=== PATIENT | male | born 1945 | race Caucasian/White ===

== ENCOUNTER 2016-10-10 09:09 | Emergency (ER) | payer MEDICARE, OTHER ==
[~2016-10-10] VITALS: Ht 167.6 cm; Wt 72.0 kg
[~2016-10-10 09:09] MED LIST: AMOX500T PO; ASPI81TA11 OR; LISI-360 PO; METO50TA OR; PLAV75TA OR; SIMV40TA OR
[2016-10-10 09:11] VITALS: BP 130/66; PULSE 58; RESP 20; TEMP 97.8; O2SAT 88
[2016-10-10 09:26] VITALS: BP 137/64; PULSE 58; RESP 20; O2SAT 88
--- NOTE | 2016-10-10 09:59 | PD ---
HPI Chief Complaint: Dizziness Time Seen by Provider: 09:26 Travel History International Travel<30 days: No Contact w/Intl Traveler<30days: No Traveled to known affect area: No History of Present Illness HPI This patient complains of dizziness. However on further questioning he actually has a horizontal binocular diplopia. No vertigo. No headache or head injury or fever. 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 However yesterday he had a worsening and now has the diplopia. [facility] have [facility] but doesn't know his name. He is getting sent to an sales order clerk in [place] on October 20 to have evaluation for cataract surgery. He also does not know that doctor's name. Symptoms severity is moderate. No alleviating factors. PFSH Past Medical History Heart Rhythm Problems: No Cardiac Catheterization: Yes Cardiovascular Problems: Yes ([place]) High Cholesterol: Yes Congestive Heart Failure: No Diabetes: No Diminished Hearing: No Hypertension: Yes Respiratory: Yes ([facility]) Past Surgical History Coronary Artery Bypass Graft: No Coronary Stent: Yes (2009) Social History Alcohol Use: Yes (OCC) Tobacco Use: No (stopped yesterday) Substance Use: No Allergies-Medications (Allergen,Severity, Reaction): Coded Allergies: No Known Allergies (Verified , 10/10/16) Reported Meds & Prescriptions Reported Meds & Active Scripts Active Amoxil (Amoxicillin) 500 Mg Cap 500 Mg PO TID Reported Lisinopril 10 Mg Tab 10 Mg PO Plavix (Clopidogrel Bisulfate) 75 Mg Tab 75 Mg OR Metoprolol Tartrate 50 Mg Tab 25 Mg OR BID Simvastatin 40 Mg Tab 40 Mg OR Aspirin EC (Aspirin) 81 Mg Tab 81 Mg OR Review of Systems General / Constitutional: No: Fever Eyes: Positive: Diploplia, No: Visual changes HENT: No: Headaches Cardiovascular: No: Chest Pain or Discomfort Respiratory: No: Shortness of Breath Gastrointestinal: No: Abdominal Pain Genitourinary: No: Dysuria Musculoskeletal: No: Pain Skin: No Rash Neurologic: Positive: Dizziness, No: Weakness Psychiatric: No: Depression Endocrine: No: Polydipsia Hematologic/Lymphatic: No: Easy Bruising Physical Exam Narrative GENERAL: Well-nourished, well-developed patient in no apparent distress. SKIN: Focused skin assessment reveals no rash and nodules. Skin is Warm and dry. HEAD: Atraumatic. Normocephalic. EYES: Pupils equal and round. No scleral icterus. No injection or drainage. ENT: No nasal bleeding or discharge. Mucous membranes pink and moist. Patient has a prominent amblyopia. His right eye wanders. On extraocular muscle testing he appears to have a left sided nerve palsy. He cannot look to the left side fully. Pupil function is normal. NECK: Trachea midline. No JVD. CARDIOVASCULAR: Regular rate and rhythm. No murmur appreciated. RESPIRATORY: No accessory muscle use. Clear to auscultation. Breath sounds equal bilaterally. GASTROINTESTINAL: Abdomen soft, non-tender, nondistended. Hepatic and splenic margins not palpable. MUSCULOSKELETAL: No obvious deformities. No clubbing. No cyanosis. No edema. NEUROLOGICAL: Awake and alert. Motor grossly within normal limits. Normal speech. PSYCHIATRIC: Appropriate mood and affect; insight and judgment normal. Data Data Last Documented VS Vital Signs Date Time Temp Pulse Resp B/P Pulse Ox O2 Delivery O2 Flow Rate FiO2 10/10/16 11:12 59 16 124/65 98 Room Air 10/10/16 09:11 97.8 MDM Medical Decision Making Medical Screen Exam Complete: Yes Emergency Medical Condition: Yes Medical Record Reviewed: Yes Differential Diagnosis nerve palsy, diplopia, cataract Narrative Course I have reviewed the patient's electronic medical record. Case is reviewed in detail with sales order clerk Dr. Alexander. She doesn't recommend anything emergent to be done. She recommends ophthalmology follow-up Had a lengthy discussion with patient and at bedside. They're going to need to [facility] and call them and let them know about this new development. They should get a recheck. If they develop any stroke signs or symptoms that would be a whole different situation and should return promptly. 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
[2016-10-10 11:12] VITALS: BP 124/65; PULSE 59; RESP 16; O2SAT 98
== END 2016-10-10 12:33 | disposition home or self-care (01) ==
LOC: NEPC 09:09
DX: H53.2 Diplopia (principal); H49.22 Sixth [abducent] nerve palsy, left eye; I10 Essential (primary) hypertension; E78.00 Pure hypercholesterolemia, unspecified; I25.2 Old myocardial infarction; Z79.899 Other long term (current) drug therapy
CPT/HCPCS: 99281

== ENCOUNTER 2017-08-28 08:18 | Observation (INO) | payer OTHER, MEDICARE ==
[~2017-08-28] VITALS: Ht 167.6 cm; Wt 67.0 kg
[2017-08-28] VITALS (9 sets, daily range): BP systolic 131–157; BP diastolic 61–84; PULSE 61–79; RESP 16–18; TEMP 97.6–98.2; O2SAT 86–99
[2017-08-28] MEDS ORDERED: ASPI81CH6 CHEW (08:39)
[2017-08-28] MEDS ORDERED: SIMV40TA PO (08:39)
[2017-08-28] MEDS ORDERED: METF500T PO (08:39)
[2017-08-28] MEDS ORDERED: SODIUM CHLORIDE 0.9% FLUSH 10 ML FLUSH IVF PRN (10:45)
[2017-08-28 10:47] LABS: AUTOMATED NEUTROPHIL # 9.2 TH/MM3 (1.8-7.7); BASOPHIL # 0.1 TH/MM3 (0-0.2); BASOPHIL % 0.7 % (0.0-2.0); EOSINOPHIL # 0.2 TH/MM3 (0-0.4); EOSINOPHIL % 1.2 % (0.0-4.0); HEMATOCRIT 44.1 % (39.0-51.0); HEMOGLOBIN 14.7 GM/DL (13.0-17.0); LYMPH % 15.3 % (9.0-44.0); LYMPHOCYTE # 1.9 TH/MM3 (1.0-4.8); MEAN CELL VOLUME 92.5 FL (80.0-100.0); MEAN CORPUSCULAR HEMOGLOBIN 30.8 PG (27.0-34.0); MEAN CORPUSCULAR HGB CONC 33.3 % (32.0-36.0); MEAN PLATELET VOLUME 9.1 FL (7.0-11.0); MONO % 9.1 % (0.0-8.0); MONOCYTE # 1.1 TH/MM3 (0-0.9); NEUT % 73.7 % (16.0-70.0); PLATELET COUNT 230 TH/MM3 (150-450); RED BLOOD COUNT 4.77 MIL/MM3 (4.50-5.90); RED CELL DISTRIBUTION WIDTH 13.3 % (11.6-17.2); WHITE BLOOD COUNT 12.4 TH/MM3 (4.0-11.0)
[2017-08-28 10:56] LABS: PROTHROMBIN TIME - PATIENT 10.2 SEC (9.8-11.6)
[2017-08-28 11:02] LABS: ALBUMIN 3.4 GM/DL (3.4-5.0); AST (GOT) 18 U/L (15-37); BLOOD UREA NITROGEN 5 MG/DL (7-18); CALCIUM 8.8 MG/DL (8.5-10.1); CHLORIDE 105 MEQ/L (98-107); CREATININE 1.03 MG/DL (0.60-1.30); GLOMERULAR FILTRATION RATE 72 ML/MIN (>89); GLUCOSE,RANDOM 138 MG/DL (74-106); SODIUM (NA) 144 MEQ/L (136-145)
[2017-08-28 11:07] LABS: ALKALINE PHOSPHATASE 81 U/L (45-117); ALT (GPT) 14 U/L (12-78); TOTAL BILIRUBIN ADULT 0.5 MG/DL (0.2-1.0); TOTAL PROTEIN 7.9 GM/DL (6.4-8.2); TROPONIN I LESS THAN 0.02 NG/ML (0.02-0.05)
--- NOTE | 2017-08-28 11:20 | RADRPT ---
EXAM DATE/TIME: 08/28/2017 10:49 [facility] COMPARISON: CHEST PA & LAT, January 27, 2011, 22:59 INDICATIONS : Patient states syncope. MEDICAL HISTORY : Hypercholesterolemia. SURGICAL HISTORY : Coronary artery stent. ENCOUNTER: Initial ACUITY: 1 day PAIN SCORE: 0/10 LOCATION: Bilateral chest FINDINGS: Diffuse lower lobe predominant interstitial prominence/fibrosis which has progressed since remote chloe or exam. Cardiomediastinal contours are within normal limits. Bony thorax is intact. CONCLUSION: 1. Diffuse lower lobe predominant interstitial changes/fibrosis, progressed from remote prior exam. Orion Ann MD on August 28, 2017 at 11:13 Board Certified Radiologist. This report was verified electronically.
--- NOTE | 2017-08-28 11:22 | RADRPT ---
EXAM DATE/TIME: 08/28/2017 10:57 [facility] COMPARISON: No previous studies available for comparison. INDICATIONS : Patient complains of dizziness. RADIATION DOSE: 56.35 CTDIvol (mGy) MEDICAL HISTORY : Cardiovascular disease. Hypertension. Chronic obstructive pulmonary disease.diabetic SURGICAL HISTORY : None. ENCOUNTER: Initial ACUITY: 1 day PAIN SCALE: 0/10 LOCATION: cranial TECHNIQUE: Multiple contiguous axial images were obtained of the head. Using automated exposure control and adj ustment of the mA and/or kV according to patient size, radiation dose was kept as low as reasonably a chievable to obtain optimal diagnostic quality images. DICOM format image data is available electro nically for review and comparison. FINDINGS: CEREBRUM: Mild diffuse triple volume loss. The ventricles are minimally prominent in size compared to degree of atrophy. No evidence of midline shift, mass lesion, hemorrhage or acute infarction. No extra-axial fluid collections are seen. POSTERIOR FOSSA: The cerebellum and brainstem are intact. The 4th ventricle is midline. The cerebellopontine angle i s unremarkable. EXTRACRANIAL: The visualized portion of the orbits is intact. SKULL: The calvaria is intact. No evidence of skull fracture. CONCLUSION: 1. Minimal diffuse ventriculomegaly out of proportion to degree of atrophy. Consider clinical correla tion for normal pressure hydrocephalus. 2. Otherwise, no acute intracranial abnormality. Orion Ann MD on August 28, 2017 at 11:18 Board Certified Radiologist. This report was verified electronically.
--- NOTE | 2017-08-28 12:34 | PD ---
HPI Chief Complaint: Dizziness Time Seen by Provider: 08:53 Travel History International Travel<30 days: No Contact w/Intl Traveler<30days: No Traveled to known affect area: No History of Present Illness HPI THIS NOTE WAS ENTERED IN ERROR. PLEASE SEE COMPLETED NOTE. PFSH Past Medical History Heart Rhythm Problems: No Cardiac Catheterization: Yes Cardiovascular Problems: Yes ([place]) High Cholesterol: Yes Congestive Heart Failure: No COPD: Yes Diabetes: Yes Patient Takes Glucophage: Yes Diminished Hearing: No Hypertension: Yes Respiratory: Yes ([facility]) Tetanus Vaccination: > 5 Years Influenza Vaccination: No Past Surgical History Coronary Artery Bypass Graft: No Coronary Stent: Yes (2009) Eye Surgery: Yes (L EYE CATARACT) Social History Alcohol Use: Yes (OCC) Tobacco Use: Yes (1 PPD) Substance Use: No Allergies-Medications (Allergen,Severity, Reaction): Coded Allergies: No Known Allergies (Verified Allergy, Unknown, 08/28/17) Reported Meds & Prescriptions Reported Meds & Active Scripts Active Reported Aspirin Low Dose (Aspirin) 81 Mg Chew 81 Mg CHEW DAILY Simvastatin 40 Mg Tab 40 Mg PO HS Metformin (Metformin HCl) 500 Mg Tab 500 Mg PO DAILY With a meal Review of Systems Except as stated in HPI: all other systems reviewed are Neg Data Data Last Documented VS Vital Signs Date Time Temp Pulse Resp B/P (MAP) Pulse Ox O2 Delivery O2 Flow Rate FiO2 08/28/17 12:52 61 18 147/63 (91) 97 Room Air 08/28/17 08:20 97.6 Orders Orders Electrocardiogram (08/28/17 ) Prothrombin Time / Inr (Pt) (08/28/17 10:31) Act Partial Throm Time (Ptt) (08/28/17 10:31) Complete Blood Count With Diff (08/28/17 10:31) Comprehensive Metabolic Panel (08/28/17 10:31) Creatine Kinase (Cpk) (08/28/17 10:31) Troponin I (08/28/17 10:31) Urinalysis - C+S If Indicated (08/28/17 10:31) Ct Brain W/O Iv Contrast(Rout) (08/28/17 10:31) Chest, Single Ap (08/28/17 10:31) Ecg Monitoring (08/28/17 10:31) Iv Access Insert/Monitor (08/28/17 10:31) Oximetry (08/28/17 10:31) Sodium Chloride 0.9% Flush (Ns Flush) (08/28/17 10:45) Ckmb (Isoenzyme) Profile (08/28/17 10:31) Place In Observation (08/28/17 ) Vital Signs (Adult) Q4H (08/28/17 13:06) Activity Oob With Assistance (08/28/17 13:06) Hospitalist Nocturnist Physician / Telemetry .CONTINUOUS (08/28/17 13:06) Diet Heart Healthy (08/28/17 Lunch) Sodium Chlor 0.9% 1000 Ml Inj (Ns 1000 M (08/28/17 14:00) Sodium Chloride 0.9% Flush (Ns Flush) (08/28/17 13:15) Sodium Chloride 0.9% Flush (Ns Flush) (08/28/17 21:00) Acetaminophen (Tylenol) (08/28/17 13:15) Ondansetron Inj (Zofran Inj) (08/28/17 13:15) Basic Metabolic Panel (Bmp) (08/29/17 06:00) Complete Blood Count With Diff (08/29/17 06:00) Resp Oxygen Aiden C Titrat 1-4 L (08/28/17 ) Pt Request For Service (08/28/17 13:06) Scd Bilateral/Knee High MARISA.BID (08/28/17 13:06) Naloxone Inj (Narcan Inj) (08/28/17 13:15) Magnesium Hydroxide Liq (Milk Of Magnesi (08/28/17 13:15) Sennosides (Senokot) (08/28/17 13:15) Bisacodyl Supp (Dulcolax Supp) (08/28/17 13:15) Lactulose Liq (Lactulose Liq) (08/28/17 13:15) Admit Order (Ed Use Only) (08/28/17 13:09) Labs Laboratory Tests Test 08/28/17 08:45 08/28/17 13:05 White Blood Count 12.4 TH/MM3 Red Blood Count 4.77 MIL/MM3 Hemoglobin 14.7 GM/DL Hematocrit 44.1 % Mean Corpuscular Volume 92.5 FL Mean Corpuscular Hemoglobin 30.8 PG Mean Corpuscular Hemoglobin Concent 33.3 % Red Cell Distribution Width 13.3 % Platelet Count 230 TH/MM3 Mean Platelet Volume 9.1 FL Neutrophils (%) (Auto) 73.7 % Lymphocytes (%) (Auto) 15.3 % Monocytes (%) (Auto) 9.1 % Eosinophils (%) (Auto) 1.2 % Basophils (%) (Auto) 0.7 % Neutrophils # (Auto) 9.2 TH/MM3 Lymphocytes # (Auto) 1.9 TH/MM3 Monocytes # (Auto) 1.1 TH/MM3 Eosinophils # (Auto) 0.2 TH/MM3 Basophils # (Auto) 0.1 TH/MM3 CBC Comment DIFF FINAL Differential Comment Prothrombin Time 10.2 SEC Prothromb Time International Ratio 1.0 RATIO Activated Partial Thromboplast Time 25.9 SEC Blood Urea Nitrogen 5 MG/DL Creatinine 1.03 MG/DL Random Glucose 138 MG/DL Total Protein 7.9 GM/DL Albumin 3.4 GM/DL Calcium Level 8.8 MG/DL Alkaline Phosphatase 81 U/L Aspartate Amino Transf (AST/SGOT) 18 U/L Alanine Aminotransferase (ALT/SGPT) 14 U/L Total Bilirubin 0.5 MG/DL Sodium Level 144 MEQ/L Potassium Level 4.1 MEQ/L Chloride Level 105 MEQ/L Carbon Dioxide Level 31.0 MEQ/L Anion Gap 8 MEQ/L Estimat Glomerular Filtration Rate 72 ML/MIN Total Creatine Kinase 69 U/L Troponin I LESS THAN 0.02 NG/ML Urine Color YELLOW Urine Turbidity CLEAR Urine pH 5.0 Urine Specific [place] 1.021 Urine Protein TRACE mg/dL Urine Glucose (UA) NEG mg/dL Urine Ketones NEG mg/dL Urine Occult Blood NEG Urine Nitrite NEG Urine Bilirubin NEG Urine Urobilinogen 2.0 MG/DL Urine Leukocyte Esterase NEG Urine RBC LESS THAN 1 /hpf Urine WBC 1 /hpf Urine Squamous Epithelial Cells <1 /hpf Urine Hyaline Casts 17 /lpf Urine Mucus MOD /lpf Microscopic Urinalysis Comment CATH-CULT NOT IND MDM Medical Decision Making Medical Screen Exam Complete: Yes Emergency Medical Condition: Yes Admitting Information Admitting Physician Requests: Observation Emily Ruff MD August 28, 2017 12:34
--- NOTE | 2017-08-28 12:52 | PD ---
HPI Chief Complaint: Dizziness Time Seen by Provider: 08:53 Travel History International Travel<30 days: No Contact w/Intl Traveler<30days: No Traveled to known affect area: No History of Present Illness HPI Patient presents to the emergency department complaining of dizziness. 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 New onset. No acute vision change, fever, chills, nausea, vomiting, chest pain, lower extremity edema, unsure of headache. He reports chronic dyspnea secondary to COPD and he is on home O2. PFSH Past Medical History Heart Rhythm Problems: No Cardiac Catheterization: Yes Cardiovascular Problems: Yes ([place]) High Cholesterol: Yes Congestive Heart Failure: No COPD: Yes Diabetes: Yes Patient Takes Glucophage: Yes Diminished Hearing: No Hypertension: Yes Respiratory: Yes ([facility]) Tetanus Vaccination: > 5 Years Influenza Vaccination: No Past Surgical History Coronary Artery Bypass Graft: No Coronary Stent: Yes (2009) Eye Surgery: Yes (L EYE CATARACT) Social History Alcohol Use: Yes (OCC) Tobacco Use: Yes (1 PPD) Substance Use: No Allergies-Medications (Allergen,Severity, Reaction): Coded Allergies: No Known Allergies (Verified Adverse Reaction, Unknown, 08/28/17) Reported Meds & Prescriptions Reported Meds & Active Scripts Active Reported Aspirin Low Dose (Aspirin) 81 Mg Chew 81 Mg CHEW DAILY Simvastatin 40 Mg Tab 40 Mg PO HS Metformin (Metformin HCl) 500 Mg Tab 500 Mg PO DAILY With a meal Review of Systems Except as stated in HPI: all other systems reviewed are Neg Physical Exam Narrative GENERAL: No acute distress. SKIN: Focused skin assessment warm/dry. HEAD: Atraumatic. Normocephalic. EYES: Pupils equal and round. Extraocular muscles intact bilaterally. No scleral icterus. No injection or drainage. ENT: No nasal bleeding or discharge. Mucous membranes pink and moist. NECK: Trachea midline. No JVD. CARDIOVASCULAR: Regular rate and rhythm. No murmur appreciated. RESPIRATORY: No accessory muscle use. Clear to auscultation. Breath sounds equal bilaterally. GASTROINTESTINAL: Abdomen soft, non-tender, nondistended. Hepatic and splenic margins not palpable. MUSCULOSKELETAL: No obvious deformities. No clubbing. No cyanosis. No edema. NEUROLOGICAL: Awake and alert. No obvious cranial nerve deficits. Motor grossly within normal limits. Normal speech. PSYCHIATRIC: Appropriate mood and affect; insight and judgment normal. Data Data Last Documented VS Vital Signs Date Time Temp Pulse Resp B/P (MAP) Pulse Ox O2 Delivery O2 Flow Rate FiO2 08/28/17 12:52 61 18 147/63 (91) 97 Room Air 08/28/17 08:20 97.6 Orders Orders Electrocardiogram (08/28/17 ) Prothrombin Time / Inr (Pt) (08/28/17 10:31) Act Partial Throm Time (Ptt) (08/28/17 10:31) Complete Blood Count With Diff (08/28/17 10:31) Comprehensive Metabolic Panel (08/28/17 10:31) Creatine Kinase (Cpk) (08/28/17 10:31) Troponin I (08/28/17 10:31) Urinalysis - C+S If Indicated (08/28/17 10:31) Ct Brain W/O Iv Contrast(Rout) (08/28/17 10:31) Chest, Single Ap (08/28/17 10:31) Ecg Monitoring (08/28/17 10:31) Iv Access Insert/Monitor (08/28/17 10:31) Oximetry (08/28/17 10:31) Sodium Chloride 0.9% Flush (Ns Flush) (08/28/17 10:45) Ckmb (Isoenzyme) Profile (08/28/17 10:31) Labs Laboratory Tests Test 08/28/17 08:45 White Blood Count 12.4 TH/MM3 Red Blood Count 4.77 MIL/MM3 Hemoglobin 14.7 GM/DL Hematocrit 44.1 % Mean Corpuscular Volume 92.5 FL Mean Corpuscular Hemoglobin 30.8 PG Mean Corpuscular Hemoglobin Concent 33.3 % Red Cell Distribution Width 13.3 % Platelet Count 230 TH/MM3 Mean Platelet Volume 9.1 FL Neutrophils (%) (Auto) 73.7 % Lymphocytes (%) (Auto) 15.3 % Monocytes (%) (Auto) 9.1 % Eosinophils (%) (Auto) 1.2 % Basophils (%) (Auto) 0.7 % Neutrophils # (Auto) 9.2 TH/MM3 Lymphocytes # (Auto) 1.9 TH/MM3 Monocytes # (Auto) 1.1 TH/MM3 Eosinophils # (Auto) 0.2 TH/MM3 Basophils # (Auto) 0.1 TH/MM3 CBC Comment DIFF FINAL Differential Comment Prothrombin Time 10.2 SEC Prothromb Time International Ratio 1.0 RATIO Activated Partial Thromboplast Time 25.9 SEC Blood Urea Nitrogen 5 MG/DL Creatinine 1.03 MG/DL Random Glucose 138 MG/DL Total Protein 7.9 GM/DL Albumin 3.4 GM/DL Calcium Level 8.8 MG/DL Alkaline Phosphatase 81 U/L Aspartate Amino Transf (AST/SGOT) 18 U/L Alanine Aminotransferase (ALT/SGPT) 14 U/L Total Bilirubin 0.5 MG/DL Sodium Level 144 MEQ/L Potassium Level 4.1 MEQ/L Chloride Level 105 MEQ/L Carbon Dioxide Level 31.0 MEQ/L Anion Gap 8 MEQ/L Estimat Glomerular Filtration Rate 72 ML/MIN Total Creatine Kinase 69 U/L Troponin I LESS THAN 0.02 NG/ML MDM Medical Decision Making Medical Screen Exam Complete: Yes Emergency Medical Condition: Yes Interpretation(s) ECG: Sinus rhythm, 67, labs: Increased WBC count; urinalysis pending at the time of admission, admit team to follow Last Impressions Head CT 08/28/17 1031 Signed Impressions: Service Date/Time: Monday, August 28, 2017 10:57 - CONCLUSION: 1. Minimal diffuse ventriculomegaly out of proportion to degree of atrophy. Consider clinical correlation for normal pressure hydrocephalus. 2. Otherwise, no acute intracranial abnormality. Orion Ann MD Chest X-Ray 08/28/17 1031 Signed Impressions: Service Date/Time: Monday, August 28, 2017 10:49 - CONCLUSION: 1. Diffuse lower lobe predominant interstitial changes/fibrosis, progressed from remote prior exam. Orion Ann MD Differential Diagnosis CVA, TIA, intracranial abnormality Narrative Course Patient presents to the emergency department complaining of dizziness and unsteady gait. He is afebrile, slightly hypertensive at 157/69, remaining vital signs stable. Will check head CT, chest x-ray, EKG, enzymes, CBC, chemistry, coags Diagnosis Primary Impression: Dizziness Additional Impression: Normal pressure hydrocephalus Admitting Information Admitting Physician Requests: Observation Condition: Stable Emily Ruff MD August 28, 2017 12:52
[2017-08-28] MEDS ORDERED: ONDANSETRON HCL 4 MG/2 ML VIAL IVP PRN (13:15)
[2017-08-28] MEDS ORDERED: SODIUM CHLORIDE 0.9% FLUSH 10 ML FLUSH IV FLUSH PRN (13:15)
[2017-08-28] MEDS ORDERED: SENNOSIDES 8.6 MG TAB PO PRN (13:15)
[2017-08-28] MEDS ORDERED: NALOXONE HCL 0.4 MG/ML AMP IV PUSH PRN (13:15)
[2017-08-28] MEDS ORDERED: LACTULOSE SYRUP 20 GM/30 ML CUP PO PRN (13:15)
[2017-08-28] MEDS ORDERED: MAGNESIUM HYDROXIDE SUSP 30 ML CUP PO PRN (13:15)
[2017-08-28] MEDS ORDERED: BISACODYL 10 MG SUPP RECTAL PRN (13:15)
[2017-08-28] MEDS ORDERED: ACETAMINOPHEN 325 MG TAB PO PRN (13:15)
[2017-08-28 13:27] LABS: BILIRUBIN, URINE NEG (NEG); BLOOD, URINE NEG (NEG); GLUCOSE,URINE NEG (NEG); HYALINE CAST, URINE 17 /lpf (RARE); KETONE, URINE NEG (NEG); MUCUS URINE MOD /lpf (OCC); NITRITE,URINE NEG (NEG); SQUAMOUS EPITHELIAL CELL URINE <1 /hpf (0-5); URINE COLOR YELLOW (YELLW/STRAW); URINE LEUKOCYTE ESTERASE NEG (NEG)
--- NOTE | 2017-08-28 15:34 | HHI.HP ---
[facility] Admission Diagnosis Dizziness, normal pressure hydrocephalus Diagnoses: Chief Complaint: Dizziness. Travel History International Travel<30 Days: No Contact w/Intl Traveler <30 Da: No Traveled to Known Affected Are: No History of Present Illness Mr. Jurado is a pleasant 71 year old male with a history of CAD, Hyperlipidemia , COPD O2 dependent who presents to the ED on 08/28/2017 due to dizziness and near syncope this morning. He was called for jury duty and he got out of the home around 7:30AM and as he was walking, he was holding a rail and he felt dizzy. He was able to lower himself on the ground and sat there. After sometime , he felt better. He did not eat breakfast. He normally does not get dizzy or lightheaded. No chest pain, shortness of breath, nausea/vomiting. No diaphoresis. He denies any cough, abdominal pain, changes in bowel or bladder habits. His roommate subsequently brought him to the hospital for further evaluation. Review of Systems Except as stated in HPI: all other systems reviewed are Neg Past Family Social History Past Medical History CAD, Hyperlipidemia, Diabetes, COPD, Hypertension. Past Surgical History Eye cataract surgery. Coronary stent placement. Reported Medications Aspirin Low Dose (Aspirin) 81 Mg Chew 81 Mg CHEW DAILY Simvastatin 40 Mg Tab 40 Mg PO HS Metformin (Metformin HCl) 500 Mg Tab 500 Mg PO DAILY With a meal Allergies: Coded Allergies: No Known Allergies (Verified Allergy, Unknown, 08/28/17) Family History Testicular cancer in brother. Social History Alcohol Use: Yes (OCC) Tobacco Use: Yes (1 PPD) Substance Use: No Physical Exam Vital Signs Vital Signs Date Time Temp Pulse Resp B/P (MAP) Pulse Ox O2 Delivery O2 Flow Rate FiO2 08/28/17 14:29 98.0 63 16 136/84 (101) 98 08/28/17 14:15 08/28/17 13:16 97 Nasal Cannula 2.00 08/28/17 12:52 61 18 147/63 (91) 97 Room Air 08/28/17 08:37 67 18 157/69 (98) 99 Room Air 08/28/17 08:31 71 18 98 Room Air 08/28/17 08:20 97.6 79 16 145/65 (91) 86 Physical Exam GENERAL: This is a well-nourished, well-developed patient, in no apparent distress. SKIN: No rashes, ecchymoses or lesions. Warm and dry. HEAD: Atraumatic. Normocephalic. No temporal or scalp tenderness. EYES: Pupils equal round and reactive. No injection or drainage. ENT: Nose without bleeding, purulent drainage or septal hematoma. Airway patent. NECK: Trachea midline. No lymphadenopathy. Supple, nontender, no meningeal signs. CARDIOVASCULAR: Regular rate and rhythm without murmurs, gallops, or rubs. No JVD. RESPIRATORY: Poor air entry, bibasilar crackles especially on the left. No wheezes, rales, or rhonchi. GASTROINTESTINAL: Abdomen soft, non-tender, nondistended. No guarding. MUSCULOSKELETAL: Extremities without clubbing, cyanosis, or edema. NEUROLOGICAL: Awake and alert. Cranial nerves II through XII intact. No focal neurological deficits. Normal speech. Laboratory Laboratory Tests Test 08/28/17 08:45 08/28/17 13:05 White Blood Count 12.4 Red Blood Count 4.77 Hemoglobin 14.7 Hematocrit 44.1 Mean Corpuscular Volume 92.5 Mean Corpuscular Hemoglobin 30.8 Mean Corpuscular Hemoglobin Concent 33.3 Red Cell Distribution Width 13.3 Platelet Count 230 Mean Platelet Volume 9.1 Neutrophils (%) (Auto) 73.7 Lymphocytes (%) (Auto) 15.3 Monocytes (%) (Auto) 9.1 Eosinophils (%) (Auto) 1.2 Basophils (%) (Auto) 0.7 Neutrophils # (Auto) 9.2 Lymphocytes # (Auto) 1.9 Monocytes # (Auto) 1.1 Eosinophils # (Auto) 0.2 Basophils # (Auto) 0.1 CBC Comment DIFF FINAL Differential Comment Prothrombin Time 10.2 Prothromb Time International Ratio 1.0 Activated Partial Thromboplast Time 25.9 Blood Urea Nitrogen 5 Creatinine 1.03 Random Glucose 138 Total Protein 7.9 Albumin 3.4 Calcium Level 8.8 Alkaline Phosphatase 81 Aspartate Amino Transf (AST/SGOT) 18 Alanine Aminotransferase (ALT/SGPT) 14 Total Bilirubin 0.5 Sodium Level 144 Potassium Level 4.1 Chloride Level 105 Carbon Dioxide Level 31.0 Anion Gap 8 Estimat Glomerular Filtration Rate 72 Total Creatine Kinase 69 Troponin I LESS THAN 0.02 Urine Color YELLOW Urine Turbidity CLEAR Urine pH 5.0 Urine Specific Diagonal 1.021 Urine Protein TRACE Urine Glucose (UA) NEG Urine Ketones NEG Urine Occult Blood NEG Urine Nitrite NEG Urine Bilirubin NEG Urine Urobilinogen 2.0 Urine Leukocyte Esterase NEG Urine RBC LESS THAN 1 Urine WBC 1 Urine Squamous Epithelial Cells <1 Urine Hyaline Casts 17 Urine Mucus MOD Microscopic Urinalysis Comment CATH-CULT NOT IND Result Diagram: 08/28/17 0845 08/28/17 0845 Imaging Last Impressions Head CT 08/28/17 1031 Signed Impressions: Service Date/Time: Monday, August 28, 2017 10:57 - CONCLUSION: 1. Minimal diffuse ventriculomegaly out of proportion to degree of atrophy. Consider clinical correlation for normal pressure hydrocephalus. 2. Otherwise, no acute intracranial abnormality. Orion Ann MD Chest X-Ray 08/28/17 1031 Signed Impressions: Service Date/Time: Monday, August 28, 2017 10:49 - CONCLUSION: 1. Diffuse lower lobe predominant interstitial changes/fibrosis, progressed from remote prior exam. MD Johnny Peacock VTE Risk Assessment Hollisrini VTE Risk Assessment: Mod/High Risk (score >= 2) Caprini Risk Assessment Model Point Value = 1 Point Value = 2 Point Value = 3 Point Value = 5 Age 41-60 Minor surgery BMI > 25 kg/m2 Swollen legs Varicose veins or History of unexplained or recurrent spontaneous Oral contraceptives or hormone replacement Sepsis (< 1 month) Serious lung disease, including pneumonia (< 1 month) Abnormal pulmonary function Acute myocardial infarction Congestive heart failure (< 1 month) History of inflammatory bowel disease Medical patient at bed rest Age 61-74 Arthroscopic surgery Major open surgery (> 45 min) Laparoscopic surgery (> 45 min) Malignancy Confined to bed (> 72 hours) Immobilizing plaster cast Central venous access Age >= 75 History of VTE Family history of VTE Factor V Leiden Prothrombin [id number] Lupus anticoagulant Anticardiolipin antibodies Elevated serum homocysteine Heparin-induced thrombocytopenia Other congenital or acquired thrombophilia Stroke (< 1 month) Elective arthroplasty Hip, pelvis, or leg fracture Acute spinal cord injury (< 1 month) Prophylaxis Regimen Total Risk Factor Score Risk Level Prophylaxis Regimen 0-1 Low Early ambulation 2 Moderate Order ONE of the following: *Sequential Compression Device (SCD) *Heparin 5000 units SQ BID 3-4 Higher Order ONE of the following medications: *Heparin 5000 units SQ TID *Enoxaparin/Lovenox 40 mg SQ daily (WT < 150 kg, CrCl > 30 mL/min) *Enoxaparin/Lovenox 30 mg SQ daily (WT < 150 kg, CrCl > 10-29 mL/min) *Enoxaparin/Lovenox 30 mg SQ BID (WT < 150 kg, CrCl > 30 mL/min) AND/OR *Sequential Compression Device (SCD) 5 or more Highest Order ONE of the following medications: *Heparin 5000 units SQ TID (Preferred with Epidurals) *Enoxaparin/Lovenox 40 mg SQ daily (WT < 150 kg, CrCl > 30 mL/min) *Enoxaparin/Lovenox 30 mg SQ daily (WT < 150 kg, CrCl > 10-29 mL/min) *Enoxaparin/Lovenox 30 mg SQ BID (WT < 150 kg, CrCl > 30 mL/min) AND *Sequential Compression Device (SCD) Assessment and Plan Problem List: (1) Dizziness ICD Code: R42 - Dizziness and giddiness Status: Acute (2) CAD (coronary artery disease) ICD Code: I25.10 - Atherosclerotic heart disease of [place] coronary artery without angina pectoris (3) Hyperlipidemia ICD Code: E78.5 - Hyperlipidemia, unspecified (4) COPD (chronic obstructive pulmonary disease) ICD Code: J44.9 - Chronic obstructive pulmonary disease, unspecified Assessment and Plan Mr. Jurado is a pleasant 71-year-old male with a history of COPD O2 dependent, hyperlipidemia, CAD who presents to the emergency department today due to dizziness he experienced in the morning as he was trying to go to jury duty. Patient did not fall but was able to lower himself to the ground and felt better after some time. He did not lose consciousness. Dizziness Possible near syncope -No identifiable cause. Will check orthostatic blood pressure -EKG shows normal sinus rhythm without any QT prolongation, ST changes. -Also check carotid ultrasound -CT head negative. Pulmonary fibrosis -CXR reviewed by me, shows diffuse fibrosis. Patient is followed up by [place] pulmonary service. -He has home O2. Coronary artery disease COPD Diabetes mellitus -Maintain oxygen to keep O2 saturation around 90%. -DuoNeb PRN. -Continue aspirin, statin, metformin. Full code. Ambulation. Discharge plan: If no further episodes occur, we will likely discharge patient in the AM. May Medrano DO August 28, 2017 3:34 pm
[2017-08-28] MEDS: SODIUM CHLOR 0.9% 1000 ML INJ 1,000 ML IV SCH (16:37)
[2017-08-28 16:47] LABS: HEMOGLOBIN A1C 7.3 % (4.3-6.0)
--- NOTE | 2017-08-28 17:06 | PD.PN.STU ---
Subjective Remarks 71 yo male smoker with hx of [place] with stenting, COPD & O2 use, and noninsulin dependent diabetes presents with an approximately one hour episode of dizziness this morning. Has not experienced another episode since resolution of sxs this morning. was on his way to jury duty when while walking out the front door he experienced sudden onset lightheadedness and disorientation. Described that he couldn't tell "which way was up and down." The only additional symptom he noted was some visual changes consisting of "seeing jagged lines" in the right eye but no vision loss. His symptoms improved and eventually resolved after sitting down for approximately an hour. He checked his O2 with a pulse ox after this episode and reported a reading of 90%. He also denies loss of consciousness, headache, chest pain, SOB, numbness, tingling, and urinary changes. He denies sxs of orthostasis. He has had episodes of dizziness before which he attributes to his COPD, but he has never felt this disoriented nor had visual symptoms.He has tinnitus present for many years which he attributes to his time serving in [employer] around loud noises. This has been stable. PMHx: [place], COPD, DM, HTN PSHx: cataract and eye surgery, L. Stent post [place]. orthopedic surgery following trauma in '70s Social: Tobacco smoker. 4-6 beers per week. no drugs Fam hx: brother of testicular cancer. Allergies: Objective Vitals Vital Signs Date Time Temp Pulse Resp B/P (MAP) Pulse Ox O2 Delivery O2 Flow Rate FiO2 08/28/17 14:29 98.0 63 16 136/84 (101) 98 08/28/17 14:15 08/28/17 13:16 97 Nasal Cannula 2.00 08/28/17 12:52 61 18 147/63 (91) 97 Room Air 08/28/17 08:37 67 18 157/69 (98) 99 Room Air 08/28/17 08:31 71 18 98 Room Air 08/28/17 08:20 97.6 79 16 145/65 (91) 86 Result Diagram: 08/28/17 0845 08/28/17 0845 Other Results Current Medications Medications (Trade) Dose Ordered Sig/Tomas Route Start Time Stop Time Status Last Admin Sodium Chloride 1,000 ml @ 100 mls/hr Q10H IV 08/28/17 14:00 (NS Flush) 2 ml UNSCH PRN IV FLUSH 08/28/17 13:15 (NS Flush) 2 ml BID IV FLUSH 08/28/17 21:00 (Tylenol) 650 mg Q4H PRN PO 08/28/17 13:15 (Zofran Inj) 4 mg Q6H PRN IVP 08/28/17 13:15 (Narcan Inj) 0.4 mg UNSCH PRN IV PUSH 08/28/17 13:15 (Milk Of Magnesia Liq) 30 ml Q12H PRN PO 08/28/17 13:15 (Senokot) 17.2 mg Q12H PRN PO 08/28/17 13:15 (Dulcolax Supp) 10 mg DAILY PRN RECTAL 08/28/17 13:15 (Lactulose Liq) 30 ml DAILY PRN PO 08/28/17 13:15 Imaging Vital Signs, 24 Hour Date Time Temp Pulse Resp B/P (MAP) Pulse Ox O2 Delivery O2 Flow Rate FiO2 08/28/17 14:29 98.0 63 16 136/84 (101) 98 08/28/17 14:15 08/28/17 13:16 97 Nasal Cannula 2.00 08/28/17 12:52 61 18 147/63 (91) 97 Room Air 08/28/17 08:37 67 18 157/69 (98) 99 Room Air 08/28/17 08:31 71 18 98 Room Air 08/28/17 08:20 97.6 79 16 145/65 (91) 86 Allergies Coded Allergies No Known Allergies (Verified Allergy, Unknown, 08/28/17) Laboratory Tests per Tiffanie Test 08/28/17 08:45 Blood Urea Nitrogen 5 MG/DL Creatinine 1.03 MG/DL Random Glucose 138 MG/DL Total Protein 7.9 GM/DL Albumin 3.4 GM/DL Calcium Level 8.8 MG/DL Alkaline Phosphatase 81 U/L Aspartate Amino Transf (AST/SGOT) 18 U/L Alanine Aminotransferase (ALT/SGPT) 14 U/L Total Bilirubin 0.5 MG/DL Sodium Level 144 MEQ/L Potassium Level 4.1 MEQ/L Chloride Level 105 MEQ/L Carbon Dioxide Level 31.0 MEQ/L Red Blood Count 4.77 MIL/MM3 White Blood Count 12.4 TH/MM3 Recent Impressions Head CT 08/28/17 1031 Signed Impressions: Service Date/Time: Monday, August 28, 2017 10:57 - CONCLUSION: 1. Minimal diffuse ventriculomegaly out of proportion to degree of atrophy. Consider clinical correlation for normal pressure hydrocephalus. 2. Otherwise, no acute intracranial abnormality. Orion Ann MD Chest X-Ray 08/28/17 1031 Signed Impressions: Service Date/Time: Monday, August 28, 2017 10:49 - CONCLUSION: 1. Diffuse lower lobe predominant interstitial changes/fibrosis, progressed from remote prior exam. Orion Ann MD Active Scripts Active Reported Aspirin Low Dose (Aspirin) 81 Mg Chew 81 Mg CHEW DAILY Simvastatin 40 Mg Tab 40 Mg PO HS Metformin (Metformin HCl) 500 Mg Tab 500 Mg PO DAILY With a meal Objective Remarks well appearing male, in no acute distress HEENT: normocephalic. no bruits or murmurs noted in carotids bilaterally upon auscultation Pulm: diminished breath sounds bilaterally. Some crackles heard in Left lower lobe region. Some expiratory wheezing noted. Cardiac: no swelling noted. regular rate and rhythm. s1 and s2 clear. no murmurs rubs, or gallops. A/P Assessment and Plan Acute resolved episode of dizziness: EKG not indicative of cardiac cause Head CT showed no obvious abnormalities that could be clinically correlated Check orthostatic vitals Perform Doppler US of carotids for possible TIA considering risk factors continue home meds: aspirin, metformin, and statin Monitor overnight and consider discharge in the [place] [facility] August 28, 2017 17:06
[2017-08-28] MEDS ORDERED: RESP: ALBUTEROL 2.5 MG/IPRATROPIUM 0.5 MG NEB (PRN) NEB (17:15)
--- NOTE | 2017-08-28 18:29 | EKG ---
Date Performed: 08/28/2017 Time Performed: 08:47:14 PTAGE: 71 years EKG: Sinus rhythm NORMAL ECG Since the PREVIOUS TRACING , no significant change noted PREVIOUS TRACIN01/29/2011 05.29 DOCTOR: Skip Kelley Interpretating Date/Time 08/28/2017 18:27:31
[2017-08-28] MEDS: SODIUM CHLORIDE 0.9% FLUSH 10 ML FLUSH IV FLUSH SCH (20:19)
[2017-08-28] MEDS ORDERED: NON-FORMULARY DRUG (Simvastatin 40 MG) PO SCH (21:00)
[2017-08-28] MEDS ORDERED: PRAVASTATIN SOD 40 MG TAB PO SCH (21:00)
--- NOTE | 2017-08-28 22:53 | RADRPT ---
EXAM DATE/TIME: 08/28/2017 21:20 [place] COMPARISON: No previous studies available for comparison. INDICATIONS : Dizziness. MEDICAL HISTORY : Myocardial infarction. Hypercholesterolemia. Hypertension. Diabetes. Agent [place] exposure. Coronary artery disease. COPD. SURGICAL HISTORY : Carotid stent. Cardiac catheterization. Left eye cataract extraction. ENCOUNTER: ACUITY: 1 day PAIN SCORE: 0/10 LOCATION: Bilateral neck PEAK SYSTOLIC VELOCITIES (cm/sec): ICA/CCA RATIO: Right: 0.9 Left: 1.0 ICA: Right: 85.2 Left: 91.4 CCA: Right: 91.6 Left: 90.6 ECA: Right: 112.2 Left: 112.4 VERTEBRAL: Right: 94.5 antegrade Left: 42.6 antegrade Elevated flow velocities and ICA/CCA ratios have been found to correlate with increased degrees of vessel stenosis, calculated as percentage of diameter relative to a normal segment of distal ICA/CCA FINDINGS: RIGHT CAROTID: No significant stenosis is visualized. The waveforms are within normal limits. LEFT CAROTID: No significant stenosis is visualized. The waveforms are within normal limits. VERTEBRAL ARTERIES: Antegrade flow is seen in both vertebral arteries. MISCELLANEOUS: None. CONCLUSION: 1. Minimal plaque formation in the carotid arteries bilaterally. No hemodynamically significant steno sis. Praneeth Morgan MD on August 28, 2017 at 22:50 Board Certified Radiologist. This report was verified electronically.
[2017-08-29] VITALS: PULSE 68
[2017-08-29 00:09] VITALS: BP 129/69; PULSE 72; RESP 16; TEMP 98.2; O2SAT 99
[2017-08-29] MEDS: SODIUM CHLOR 0.9% 1000 ML INJ 1,000 ML IV SCH ×2 (00:11→10:00)
[2017-08-29 04:03] VITALS: BP 133/65; PULSE 76; RESP 16; TEMP 98.1; O2SAT 92
[2017-08-29 07:05] LABS: AUTOMATED NEUTROPHIL # 5.6 TH/MM3 (1.8-7.7); BASOPHIL # 0.1 TH/MM3 (0-0.2); BASOPHIL % 0.7 % (0.0-2.0); EOSINOPHIL # 0.2 TH/MM3 (0-0.4); EOSINOPHIL % 2.5 % (0.0-4.0); HEMOGLOBIN 13.4 GM/DL (13.0-17.0); LYMPH % 26.3 % (9.0-44.0); LYMPHOCYTE # 2.5 TH/MM3 (1.0-4.8); MEAN CELL VOLUME 91.8 FL (80.0-100.0); MEAN CORPUSCULAR HEMOGLOBIN 30.1 PG (27.0-34.0); MEAN CORPUSCULAR HGB CONC 32.7 % (32.0-36.0); MEAN PLATELET VOLUME 8.7 FL (7.0-11.0); MONO % 10.9 % (0.0-8.0); NEUT % 59.6 % (16.0-70.0); PLATELET COUNT 234 TH/MM3 (150-450); RED BLOOD COUNT 4.46 MIL/MM3 (4.50-5.90); RED CELL DISTRIBUTION WIDTH 13.4 % (11.6-17.2); WHITE BLOOD COUNT 9.4 TH/MM3 (4.0-11.0)
[2017-08-29 07:43] LABS: CALCIUM 8.3 MG/DL (8.5-10.1); CREATININE 0.76 MG/DL (0.60-1.30)
--- NOTE | 2017-08-29 08:18 | HHI.DCPOC ---
Discharge Care Plan Diagnosis: (1) Dizziness Goals to Promote Your Health * To prevent worsening of your condition and complications * To maintain your health at the optimal level Directions to Meet Your Goals Take your medications as prescribed Follow your dietary instruction Follow activity as directed Keep your appointments as scheduled Take your immunizations and boosters as scheduled If your symptoms worsen call your PCP, if no PCP go to Urgent Care Center or Emergency Room Smoking is Dangerous to Your Health. Avoid second hand smoke Call the 24-hour hour crisis hotline for domestic abuse at Jocelyne Klein PA-C August 29, 2017 08:18
--- NOTE | 2017-08-29 08:21 | HHI.PR ---
Subjective Remarks Follow-up near syncope/dizziness August 29, 2017-patient seen and examined, reported improvement of symptoms of dizziness and denies any syncopal episodes since admission. Vital currently stable. Patient tolerated p.o. without any competition nausea and vomiting last night. Looking for discharge home. Objective Vitals Vital Signs Date Time Temp Pulse Resp B/P (MAP) Pulse Ox O2 Delivery O2 Flow Rate FiO2 08/29/17 04:03 98.1 76 16 133/65 (87) 92 08/29/17 00:09 98.2 72 16 129/69 (89) 99 08/29/17 00:00 68 08/28/17 19:53 98.2 73 16 131/61 (84) 97 08/28/17 19:41 98 Nasal Cannula 2.00 08/28/17 19:03 98.0 69 16 141/66 (91) 97 140/68 (92) 141/73 (95) Automatic Cuff 08/28/17 16:48 97.9 65 16 150/68 (95) 96 08/28/17 14:29 98.0 63 16 136/84 (101) 98 08/28/17 14:15 08/28/17 13:16 97 Nasal Cannula 2.00 08/28/17 12:52 61 18 147/63 (91) 97 Room Air 08/28/17 08:37 67 18 157/69 (98) 99 Room Air 08/28/17 08:31 71 18 98 Room Air 08/28/17 08:20 97.6 79 16 145/65 (91) 86 I/O 08/28/17 08/28/17 08/28/17 08/29/17 08/29/17 08/29/17 07:00 15:00 23:00 07:00 15:00 23:00 Intake Total 360 ml 480 ml Output Total 1500 ml Balance 360 ml -1020 ml Intake Oral 360 ml 480 ml Output Urine Total 1500 ml Result Diagram: 08/29/1715 08/29/17614 Imaging Last Impressions Head CT 08/28/17 1031 Signed Impressions: Service Date/Time: Monday, August 28, 2017 10:57 - CONCLUSION: 1. Minimal diffuse ventriculomegaly out of proportion to degree of atrophy. Consider clinical correlation for normal pressure hydrocephalus. 2. Otherwise, no acute intracranial abnormality. Orion Ann MD Chest X-Ray 08/28/17 1031 Signed Impressions: Service Date/Time: Monday, August 28, 2017 10:49 - CONCLUSION: 1. Diffuse lower lobe predominant interstitial changes/fibrosis, progressed from remote prior exam. Orion Ann MD Carotid Artery Ultrasound 08/28/17 0000 Signed Impressions: Service Date/Time: Monday, August 28, 2017 21:20 - CONCLUSION: 1. Minimal plaque formation in the carotid arteries bilaterally. No hemodynamically significant stenosis. Praneeth Morgan MD Objective Remarks GENERAL: NAD SKIN: Warm and dry. HEAD: Normocephalic. EYES: No scleral icterus. No injection or drainage. NECK: Supple, trachea midline. No JVD or lymphadenopathy. CARDIOVASCULAR: Regular rate and rhythm without murmurs, gallops, or rubs. RESPIRATORY: Breath sounds equal bilaterally. No accessory muscle use. GASTROINTESTINAL: Abdomen soft, non-tender, nondistended. MUSCULOSKELETAL: No cyanosis, or edema. BACK: Nontender without obvious deformity. No CVA tenderness. A/P Problem List: (1) Dizziness ICD Code: R42 - Dizziness and giddiness Status: Resolved (2) CAD (coronary artery disease) ICD Code: I25.10 - Atherosclerotic heart disease of [place] coronary artery without angina pectoris (3) Hyperlipidemia ICD Code: E78.5 - Hyperlipidemia, unspecified (4) COPD (chronic obstructive pulmonary disease) ICD Code: J44.9 - Chronic obstructive pulmonary disease, unspecified Status: Chronic Assessment and Plan 71-year-old man with Dizziness-resolved Possible near syncope-resolved -EKG shows normal sinus rhythm without any QT prolongation, ST changes. -Also check carotid ultrasound -CT head negative. Pulmonary fibrosis -CXR shows diffuse fibrosis. Patient is followed up by [place] pulmonary service. Coronary artery disease COPD-no current exacerbation Diabetes mellitus -DuoNeb PRN. -Continue aspirin, statin, metformin. Discharge Planning Discharge patient to home Condition on discharge: Improved Regular Diet as tolerated Ad Ami activity Rx written:none Follow-up with primary care physician in 1week Adi Houston MD August 29, 2017 08:21
[2017-08-29 08:22] VITALS: BP 130/61; PULSE 65; RESP 18; TEMP 98.2; O2SAT 97
--- NOTE | 2017-08-29 08:42 | PD.PN.STU ---
Subjective Remarks Pt has not experienced any of his sxs of dizziness since his initial episode yesterday morning. he has no additional sxs as well. He said he "feels ready to go home." Doppler Carotids showed no significant findings Objective Vitals Vital Signs Date Time Temp Pulse Resp B/P (MAP) Pulse Ox O2 Delivery O2 Flow Rate FiO2 08/29/17 08:22 98.2 65 18 130/61 (84) 97 08/29/17 04:03 98.1 76 16 133/65 (87) 92 08/29/17 00:09 98.2 72 16 129/69 (89) 99 08/29/17 00:00 68 08/28/17 19:53 98.2 73 16 131/61 (84) 97 08/28/17 19:41 98 Nasal Cannula 2.00 08/28/17 19:03 98.0 69 16 141/66 (91) 97 140/68 (92) 141/73 (95) Automatic Cuff 08/28/17 16:48 97.9 65 16 150/68 (95) 96 08/28/17 14:29 98.0 63 16 136/84 (101) 98 08/28/17 14:15 08/28/17 13:16 97 Nasal Cannula 2.00 08/28/17 12:52 61 18 147/63 (91) 97 Room Air 08/28/17 08:37 67 18 157/69 (98) 99 Room Air 08/28/17 08:31 71 18 98 Room Air I/O 08/28/17 08/28/17 08/28/17 08/29/17 08/29/17 08/29/17 07:00 15:00 23:00 07:00 15:00 23:00 Intake Total 360 ml 480 ml Output Total 1500 ml Balance 360 ml -1020 ml Intake Oral 360 ml 480 ml Output Urine Total 1500 ml Result Diagram: 08/29/1715 08/29/17 0615 Imaging Vital Signs, 24 Hour Date Time Temp Pulse Resp B/P (MAP) Pulse Ox O2 Delivery O2 Flow Rate FiO2 08/29/17 08:22 98.2 65 18 130/61 (84) 97 08/29/17 04:03 98.1 76 16 133/65 (87) 92 08/29/17 00:09 98.2 72 16 129/69 (89) 99 08/29/17 00:00 68 08/28/17 19:53 98.2 73 16 131/61 (84) 97 08/28/17 19:41 98 Nasal Cannula 2.00 08/28/17 19:03 98.0 69 16 141/66 (91) 97 140/68 (92) 141/73 (95) Automatic Cuff 08/28/17 16:48 97.9 65 16 150/68 (95) 96 08/28/17 14:29 98.0 63 16 136/84 (101) 98 08/28/17 14:15 08/28/17 13:16 97 Nasal Cannula 2.00 08/28/17 12:52 61 18 147/63 (91) 97 Room Air 08/28/17 08:37 67 18 157/69 (98) 99 Room Air 08/28/17 08:31 71 18 98 Room Air Allergies Coded Allergies No Known Allergies (Verified Allergy, Unknown, 08/28/17) Intake/Outtake 08/29/17 08/29/17 11:00 23:00 Intake Total 480 ml Output Total 1500 ml Balance -1020 ml Laboratory Tests per Tiffanie Test 08/28/17 08:45 08/29/17 06:15 Blood Urea Nitrogen 5 MG/DL 6 MG/DL Creatinine 1.03 MG/DL 0.76 MG/DL Random Glucose 138 MG/DL 113 MG/DL Total Protein 7.9 GM/DL Albumin 3.4 GM/DL Calcium Level 8.8 MG/DL 8.3 MG/DL Alkaline Phosphatase 81 U/L Aspartate Amino Transf (AST/SGOT) 18 U/L Alanine Aminotransferase (ALT/SGPT) 14 U/L Total Bilirubin 0.5 MG/DL Sodium Level 144 MEQ/L 144 MEQ/L Potassium Level 4.1 MEQ/L 3.9 MEQ/L Chloride Level 105 MEQ/L 108 MEQ/L Carbon Dioxide Level 31.0 MEQ/L 30.0 MEQ/L Red Blood Count 4.77 MIL/MM3 4.46 MIL/MM3 White Blood Count 12.4 TH/MM3 9.4 TH/MM3 Recent Impressions Head CT 08/28/17 1031 Signed Impressions: Service Date/Time: Monday, August 28, 2017 10:57 - CONCLUSION: 1. Minimal diffuse ventriculomegaly out of proportion to degree of atrophy. Consider clinical correlation for normal pressure hydrocephalus. 2. Otherwise, no acute intracranial abnormality. Orion Ann MD Chest X-Ray 08/28/17 1031 Signed Impressions: Service Date/Time: Monday, August 28, 2017 10:49 - CONCLUSION: 1. Diffuse lower lobe predominant interstitial changes/fibrosis, progressed from remote prior exam. Orion Ann MD Active Scripts Active Reported Aspirin Low Dose (Aspirin) 81 Mg Chew 81 Mg CHEW DAILY Simvastatin 40 Mg Tab 40 Mg PO HS Metformin (Metformin HCl) 500 Mg Tab 500 Mg PO DAILY With a meal Objective Remarks well appearing and in no acute distress Pulm: clear to auscultation Cardiac: RRR. clear S1 and S2. nor murmurs, rubs or gallops Procedures 1. Isolated episode of dizziness no signs of stroke, TIA, or NM. has had recent eye surgery and describes problems with eyes in the past. consider follow-up with ophtho outpt 2. Tinnitus audiometry evaluation may be of benefit 3. Consider Discharge now A/P Assessment and Plan 1. Isolated episode of dizziness no signs of stroke, TIA, or NM. check orthostatic vitals has had recent eye surgery and describes problems with eyes in the past. consider follow-up with ophtho outpt 2. Tinnitus audiometry evaluation may be of benefit 3. Consider Discharge now [place] [facility] August 29, 2017 08:42
[2017-08-29] MEDS: SODIUM CHLORIDE 0.9% FLUSH 10 ML FLUSH IV FLUSH SCH (08:58)
[2017-08-29] MEDS ORDERED: ASPIRIN 81 MG CHEW TAB CHEW SCH (09:00)
[2017-08-29] MEDS ORDERED: metFORMIN HCL 500 MG TAB PO SCH (09:00)
== END 2017-08-29 15:31 | disposition home or self-care (01) ==
LOC: NEPE 08:18 → NEDA 13:11 → INTOOBSV 13:11 → OBSVTOIN 13:11 → NEPFCDU 14:21
PROVIDERS: ADMIT Hospitalist; ATTEND Hospitalist
DX: R42 Dizziness and giddiness (principal); I25.10 Atherosclerotic heart disease of native coronary artery without angina pectoris; E78.5 Hyperlipidemia, unspecified; J44.9 Chronic obstructive pulmonary disease, unspecified; J84.10 Pulmonary fibrosis, unspecified; I10 Essential (primary) hypertension; I25.2 Old myocardial infarction; G91.2 (Idiopathic) normal pressure hydrocephalus; E11.9 Type 2 diabetes mellitus without complications; H93.19 Tinnitus, unspecified ear; F17.200 Nicotine dependence, unspecified, uncomplicated; Z95.5 Presence of coronary angioplasty implant and graft; Z99.81 Dependence on supplemental oxygen; Z79.899 Other long term (current) drug therapy; Z79.82 Long term (current) use of aspirin; Z79.84 Long term (current) use of oral hypoglycemic drugs
CPT/HCPCS: 70450; 71045; 80048; 80053; 81001; 82550; 83036; 84484; 85025; 85610; 85730; 93005; 93880; 96360; 96361; 97161; 99285; G0378; G8987; G8988; G8989; J7030